=== PATIENT | male | born 2000 | race Two or more races ===

== ENCOUNTER 2023-07-09 23:38 | Emergency (ER) | payer OTHER ==
[~2023-07-09] VITALS: Ht 188 cm; Wt 81.6 kg
[2023-07-09 23:45] VITALS: BP 144/66; TEMP 98
[2023-07-10] MEDS ORDERED: PENI500T PO (01:26)
[2023-07-10] MEDS ORDERED: HYDR-4279 PO (01:26)
[2023-07-10] MEDS ORDERED: HYDROCODONE/APAP 10/325MG TABLET PO ONE (01:30)
[2023-07-10] MEDS ORDERED: HYDROCODONE/APAP 5/325MG TABLET ONE (01:35)
[2023-07-10] MEDS ORDERED: HYDROCODONE/APAP 10/325MG TABLET ONE (01:39)
[2023-07-10 01:54] VITALS: O2SAT 97
== END 2023-07-10 01:55 | disposition home or self-care (01) ==
LOC: ER 23:40
DX: K04.7 Periapical abscess without sinus (principal); Z79.899 Other long term (current) drug therapy